=== PATIENT | female | born 1990 | race African-American/Black ===

== ENCOUNTER 2016-07-19 22:42 | Emergency (ER) | payer MEDICAID ==
[~2016-07-19] VITALS: Ht 152.4 cm; Wt 44.0 kg
[2016-07-20 02:06] LABS: *BILIRUBIN,URIN NEGATIVE (NEGATIVE); *BLOOD, URINE 1+ (NEGATIVE); *CLARITY,URINE CLEAR (CLEAR); *COLOR,URINE YELLOW (YELLOW); *KETONES,URINE NEGATIVE (NEGATIVE); *PROTEIN,URINE NEGATIVE (NEGATIVE); *UROBILINOGEN,URINE 0.2 E.U./dl (NORMAL); LEUKOCYTE ESTERASE ,URINE NEGATIVE (NEGATIVE); NITRITE, URINE NEGATIVE (NEGATIVE); UGLUCOSE NEGATIVE (NEGATIVE)
[2016-07-20 02:21] LABS: RBC,URINE 0-3 /HPF (0-3)
[2016-07-20 02:22] LABS: *URINE HCG, QUAL POSITIVE (NEGATIVE); BACTERIA,URINE FEW /HPF (NONE SEEN); SQUAMOUS EPITHELIAL CELL,UR MANY /HPF (NONE SEEN)
[2016-07-20 02:25] LABS: BASOPHILS % (AUTO) 0.2 % (0.0-2.0); EOSINOPHILS # (AUTO) 0.3 K/uL (0.0-0.7); EOSINOPHILS % (AUTO) 3.6 % (0.0-7.0); HEMOGLOBIN 11.1 G/DL (12.0-16.0); LYMPHOCYTES # (AUTO) 2.4 K/UL (0.8-4.8); MEAN CORPUSCULAR HEMOGLOBIN 27.1 UUG (27.0-31.0); MEAN CORPUSCULAR HGB CONC 34 g/dL (32.0-37.0); MEAN CORPUSCULAR VOLUME 80.9 FL (81.0-99.0); MONOCYTES # (AUTO) 0.8 K/UL (0.1-1.30); MONOCYTES % (AUTO) 8.6 % (0.0-11.0); NEUTROPHILS # (AUTO) 5.5 K/UL (1.8-8.9); NEUTROPHILS % (AUTO) 60.6 % (38.5-71.5); PLATELET COUNT (AUTO) 235 K/UL (150-450); RED BLOOD CELL COUNT(AUTO) 4.08 MIL/UL (4.2-5.4); RED CELL DISTRIBUTION WIDTH 12.5 % (11.5-14.5)
--- NOTE | 2016-07-20 02:49 | NUR ---
Patient discharged to home in stable conditon. Written and verbal after care instructions given. Patient verbalizes understanding of instructions.
== END 2016-07-20 02:51 | disposition home or self-care (01) ==
LOC: ER 22:44
DX: O20.0 Threatened abortion (principal); Z3A.01 Less than 8 weeks gestation of pregnancy; F10.20 Alcohol dependence, uncomplicated
CPT/HCPCS: 36415; 76856; 84703; 85025; 86850; 86900; 86901; A4663

== ENCOUNTER 2017-03-27 14:02 | Emergency (ER) | payer MEDICAID ==
[~2017-03-27] VITALS: Ht 152.4 cm; Wt 52.2 kg
[2017-03-27 14:48] LABS: EOSINOPHILS # (AUTO) 0.2 K/uL (0.0-0.7); HEMATOCRIT 33.9 % (31.2-41.9); HEMOGLOBIN 10.9 g/dL (10.9-14.3); MEAN CORPUSCULAR HGB CONC 32 g/dL (32.3-35.6); MONOCYTES # (AUTO) 0.4 K/uL (2.0-10.0); NEUTROPHILS # (AUTO) 4.4 K/uL (1.8-8.9)
[2017-03-27 14:51] LABS: CREATININE 0.7 mg/dL (0.6-1.3); POTASSIUM 3.4 mmol/L (3.5-5.1)
[2017-03-27 14:52] LABS: BASOPHILS % (AUTO) 0.4 % (0.0-2.0); EOSINOPHILS % (AUTO) 2.9 % (0.0-7.0); LYMPHOCYTES # (AUTO) 1.7 K/uL (20.0-40.0); LYMPHOCYTES % (AUTO) 24.7 % (20.5-51.5); MEAN CORPUSCULAR HEMOGLOBIN 25.1 uug (24.7-32.8); MEAN CORPUSCULAR VOLUME 78.1 fL (75.5-95.3); MONOCYTES % (AUTO) 6.5 % (0.0-11.0); NEUTROPHILS % (AUTO) 65.5 % (38.5-71.5); PLATELET COUNT (AUTO) 284 K/uL (179-408); RED BLOOD CELL COUNT(AUTO) 4.34 MIL/uL (3.63-4.92); WHITE BLOOD COUNT (AUTO) 6.8 K/uL (3.8-11.8)
[2017-03-27] MEDS ORDERED: CIPROFLOXACIN HCL 250 MG TABLET PO ONE (15:00)
[2017-03-27] MEDS ORDERED: METRONIDAZOLE 500 MG TABLET PO ONE (15:00)
[2017-03-27] MEDS ORDERED: CIPROFLOXACIN HCL 250 MG TABLET ONE (15:34)
[2017-03-27] MEDS ORDERED: METRONIDAZOLE 500 MG TABLET ONE (15:34)
--- NOTE | 2017-03-27 15:50 | NUR ---
Spoke with Severino (u/s) who stated he is on his way.
[2017-03-27 16:26] LABS: *BILIRUBIN,URIN NEGATIVE (NEGATIVE); *BLOOD, URINE Trace-intact (NEGATIVE); *COLOR,URINE YELLOW (YELLOW); *KETONES,URINE 2+ (NEGATIVE); *PROTEIN,URINE NEGATIVE (NEGATIVE); *UROBILINOGEN,URINE 0.2 E.U./dl (NORMAL); LEUKOCYTE ESTERASE ,URINE NEGATIVE (NEGATIVE); NITRITE, URINE NEGATIVE (NEGATIVE); UGLUCOSE NEGATIVE (NEGATIVE)
[2017-03-27 16:27] LABS: *CLARITY,URINE SLIGHTLY HAZY (CLEAR)
[2017-03-27 16:33] LABS: BACTERIA,URINE FEW /HPF (NONE SEEN); MUCUS,URINE MANY /LPF (0-FEW); RBC,URINE 0-3 /HPF (0-3); SQUAMOUS EPITHELIAL CELL,UR MODERATE /HPF (NONE SEEN)
--- NOTE | 2017-03-27 16:53 | NUR ---
Patient discharged to home in stable conditon. Written and verbal after care instructions given. Patient verbalizes understanding of instructions.
== END 2017-03-27 16:55 | disposition home or self-care (01) ==
LOC: ER 14:02
DX: N71.9 Inflammatory disease of uterus, unspecified (principal); Z98.890 Other specified postprocedural states
CPT/HCPCS: 36415; 76856; 85025; A4663

== ENCOUNTER 2017-10-18 10:48 | Emergency (ER) | payer MEDICAID ==
[~2017-10-18] VITALS: Ht 152.4 cm; Wt 47.6 kg
[2017-10-18] MEDS ORDERED: LEXAPRO (10:56)
[2017-10-18] MEDS ORDERED: TRAZODONE (10:56)
--- NOTE | 2017-10-18 11:12 | NUR ---
Directed to bed after triage. Encouraged pt to undress, change to gown, belongings secured. Seen and eval by ERMD, orders made. Urine sent to lab.Called chemical waste management technician for blood draw, awaiting
[2017-10-18 11:24] LABS: BASOPHILS % (AUTO) 0.2 % (0.0-2.0); EOSINOPHILS # (AUTO) 0.2 K/uL (0.0-0.7); EOSINOPHILS % (AUTO) 3.1 % (0.0-7.0); HEMATOCRIT 38.5 % (31.2-41.9); HEMOGLOBIN 12.4 g/dL (10.9-14.3); LYMPHOCYTES # (AUTO) 1.4 K/uL (20.0-40.0); LYMPHOCYTES % (AUTO) 18.5 % (20.5-51.5); MEAN CORPUSCULAR HEMOGLOBIN 25.6 uug (24.7-32.8); MEAN CORPUSCULAR HGB CONC 32 g/dL (32.3-35.6); MEAN CORPUSCULAR VOLUME 79.6 fL (75.5-95.3); MONOCYTES # (AUTO) 0.8 K/uL (2.0-10.0); MONOCYTES % (AUTO) 11.5 % (0.0-11.0); NEUTROPHILS # (AUTO) 4.9 K/uL (1.8-8.9); NEUTROPHILS % (AUTO) 66.7 % (38.5-71.5); PLATELET COUNT (AUTO) 191 K/uL (179-408); RED BLOOD CELL COUNT(AUTO) 4.84 MIL/uL (3.63-4.92); WHITE BLOOD COUNT (AUTO) 7.4 K/uL (3.8-11.8)
[2017-10-18 11:25] LABS: *BILIRUBIN,URIN NEGATIVE (NEGATIVE); *BLOOD, URINE 3+ (NEGATIVE); *CLARITY,URINE CLEAR (CLEAR); *COLOR,URINE YELLOW (YELLOW); *KETONES,URINE NEGATIVE (NEGATIVE); *PROTEIN,URINE NEGATIVE (NEGATIVE); *UROBILINOGEN,URINE 0.2 E.U./dl (NORMAL); LEUKOCYTE ESTERASE ,URINE 1+ (NEGATIVE); NITRITE, URINE NEGATIVE (NEGATIVE); PH,URINE 5.5 (5.0-8.0); UGLUCOSE NEGATIVE (NEGATIVE)
[2017-10-18 11:28] LABS: CARBON DIOXIDE 26 mmol/L (21-32); CHLORIDE 104 mmol/L (98-107); CREATININE 0.7 mg/dL (0.6-1.3); GLUCOSE 89 mg/dL (74-106); POTASSIUM 3.7 mmol/L (3.5-5.1); UREA NITROGEN, BLOOD 11 mg/dL (7-18)
[2017-10-18 11:34] LABS: ALANINE AMINOTRANSFERASE 34 U/L (14-59); ALKALINE PHOSPHATASE 98 U/L (50-136); ASPARTATE AMINOTRANSFERASE 48 U/L (15-37); BILIRUBIN,DIRECT 0.1 mg/dL (0.0-0.2); BILIRUBIN,TOTAL 0.3 mg/dL (0.2-1.0); TOTAL PROTEIN, SERUM 8.2 g/dL (6.4-8.2)
[2017-10-18 11:35] LABS: *URINE HCG, QUAL NEGATIVE (NEGATIVE)
[2017-10-18 11:38] LABS: ACETAMINOPHEN < 2.0 ug/mL (10-30)
[2017-10-18 11:42] LABS: BACTERIA,URINE FEW /HPF (NONE SEEN); RBC,URINE 20-50 /HPF (0-3)
[2017-10-18 11:43] LABS: MUCUS,URINE FEW /LPF (0-FEW); SQUAMOUS EPITHELIAL CELL,UR FEW /HPF (NONE SEEN)
[2017-10-18 11:44] LABS: *AMPHETAMINE, URINE NEGATIVE (NEGATIVE); *BARBITURATE, URINE NEGATIVE (NEGATIVE); *CANNABINOID, URINE NEGATIVE (NEGATIVE); *COCCAINE, URINE NEGATIVE (NEGATIVE); *OPIATE, URINE NEGATIVE (NEGATIVE); *PHENCYCLIDINE SCREEN,URINE NEGATIVE (NEGATIVE)
[2017-10-18 11:46] LABS: ETHANOL < 3 MG/DL (0-0)
--- NOTE | 2017-10-18 12:05 | NUR ---
[place] advised and ordered for Crisis rickshaw driver, Jessika called at [phone], "stated she will come and see patient", awaiting.
--- NOTE | 2017-10-18 12:07 | NUR ---
Blood was drawn by category development analyst, pelvic exam was done by ERMWes, vaginal swab was sent to lab.
--- NOTE | 2017-10-18 12:59 | NUR ---
Jessika arrived for psych eval.
--- NOTE | 2017-10-18 13:46 | NUR ---
Was seen and eval by crisis aids counselor, not on hold. ERMD aware and may go home.Awaiting family member to pick her up.
--- NOTE | 2017-10-18 13:57 | NUR ---
ACI and meds presc given and explained, showed sign of undertanding. Discharged in stable condition with steady gait.
== END 2017-10-18 14:16 | disposition home or self-care (01) ==
LOC: ER 10:48
DX: R45.851 Suicidal ideations (principal); N39.0 Urinary tract infection, site not specified
CPT/HCPCS: 36415; 80307; 84703; 85025; 87081; 87086; 87110; 87210; A4663; G0480; G0480-TC

== ENCOUNTER 2018-04-04 23:50 | Emergency (ER) | payer MEDICAID ==
[~2018-04-04] VITALS: Ht 152.4 cm; Wt 52.2 kg
[~2018-04-04 23:50] MED LIST: LEXAPRO; TRAZODONE
--- NOTE | 2018-04-05 00:07 | NUR ---
Pt ambulates to ER with c/o suicidal ideation x 2 days. Pt states her plan is to jump in front of a bus. Has hx of depression. Tamia HI. Denies auditory/visual hallucinations. Suicide precautions implemented. All pt belongings placed out of room to nursing station. Sitter (security) at bedside.
[2018-04-05 00:29] LABS: BASOPHILS % (AUTO) 0.3 % (0.0-2.0); EOSINOPHILS # (AUTO) 0.1 K/uL (0.0-0.7); HEMATOCRIT 37.7 % (31.2-41.9); LYMPHOCYTES # (AUTO) 2.4 K/uL (20.0-40.0); LYMPHOCYTES % (AUTO) 31.7 % (20.5-51.5); MEAN CORPUSCULAR HEMOGLOBIN 25.8 uug (24.7-32.8); MEAN CORPUSCULAR HGB CONC 32 g/dL (32.3-35.6); MEAN CORPUSCULAR VOLUME 81.2 fL (75.5-95.3); MONOCYTES # (AUTO) 0.6 K/uL (2.0-10.0); MONOCYTES % (AUTO) 7.7 % (0.0-11.0); NEUTROPHILS # (AUTO) 4.3 K/uL (1.8-8.9); NEUTROPHILS % (AUTO) 58.3 % (38.5-71.5); PLATELET COUNT (AUTO) 262 K/uL (179-408); RED BLOOD CELL COUNT(AUTO) 4.64 MIL/uL (3.63-4.92); WHITE BLOOD COUNT (AUTO) 7.4 K/uL (3.8-11.8)
[2018-04-05 00:34] LABS: *BILIRUBIN,URIN NEGATIVE (NEGATIVE); *BLOOD, URINE Trace-intact (NEGATIVE); *CLARITY,URINE SLIGHTLY CLOUDY (CLEAR); *COLOR,URINE YELLOW (YELLOW); *KETONES,URINE 1+ (NEGATIVE); *PROTEIN,URINE TRACE (NEGATIVE); LEUKOCYTE ESTERASE ,URINE NEGATIVE (NEGATIVE); NITRITE, URINE NEGATIVE (NEGATIVE); UGLUCOSE NEGATIVE (NEGATIVE)
[2018-04-05 00:34] LABS: CARBON DIOXIDE 28 mmol/L (21-32); CHLORIDE 101 mmol/L (98-107); CREATININE 0.7 mg/dL (0.6-1.3); GLUCOSE 96 mg/dL (74-106); POTASSIUM 3.7 mmol/L (3.5-5.1); UREA NITROGEN, BLOOD 14 mg/dL (7-18)
[2018-04-05 00:40] LABS: ALANINE AMINOTRANSFERASE 28 U/L (14-59); ALKALINE PHOSPHATASE 84 U/L (50-136); ASPARTATE AMINOTRANSFERASE 19 U/L (15-37); BILIRUBIN,DIRECT 0.1 mg/dL (0.0-0.2); BILIRUBIN,TOTAL 0.3 mg/dL (0.2-1.0); TOTAL PROTEIN, SERUM 8.6 g/dL (6.4-8.2)
[2018-04-05 00:57] LABS: BACTERIA,URINE NONE SEEN /HPF (NONE SEEN); MUCUS,URINE MANY /LPF (0-FEW); SQUAMOUS EPITHELIAL CELL,UR MODERATE /HPF (NONE SEEN); WBC,URINE 0-3 /HPF (0-3)
[2018-04-05 00:58] LABS: URINE AMORPHOUS PHOSPHATES MODERATE /HPF
[2018-04-05 01:00] LABS: *AMPHETAMINE, URINE NEGATIVE (NEGATIVE); *BARBITURATE, URINE NEGATIVE (NEGATIVE); *CANNABINOID, URINE NEGATIVE (NEGATIVE); *COCCAINE, URINE NEGATIVE (NEGATIVE); *OPIATE, URINE NEGATIVE (NEGATIVE); *PHENCYCLIDINE SCREEN,URINE NEGATIVE (NEGATIVE)
[2018-04-05 01:02] LABS: ETHANOL < 3 MG/DL (0-0)
--- NOTE | 2018-04-05 01:50 | NUR ---
Pt has been medically cleared by Dr. Mello.
--- NOTE | 2018-04-05 01:53 | NUR ---
Marsha Abdi from PET team for psych evaluation.
[2018-04-05] MEDS ORDERED: MUPIROCIN 2% OINT 22 GM TUBE TP ONE (02:00)
[2018-04-05] MEDS ORDERED: CLINDAMYCIN HCL 150 MG CAPSULE PO ONE (02:00)
[2018-04-05] MEDS ORDERED: MUPIROCIN 2% OINT 22 GM TUBE ONE (02:21)
[2018-04-05] MEDS ORDERED: CLINDAMYCIN HCL 300 MG CAPSULE ONE (02:21)
--- NOTE | 2018-04-05 02:25 | NUR ---
[place]in[place] from PET team at bedside for psych evaluation.
--- NOTE | 2018-04-05 03:18 | NUR ---
Summary report has been faxed over to [facility] (intake). Pt is requesting voluntary admission to [facility]. Pending bed availability. Pt is resting in bed with eyes closed. Respirations even + unlabored. Sitter (security at beside).
--- NOTE | 2018-04-05 03:35 | NUR ---
Spoke with [facility] from intake. Expected bed availability at [facility] at 0900 today.
--- NOTE | 2018-04-05 04:27 | NUR ---
Pt is resting comfortably in bed with eyes closed. Respirations even + unlabored. Will ctm.
--- NOTE | 2018-04-05 05:10 | NUR ---
Pt is resting comfortably in bed with eyes closed. Respirations even + unlabored.
--- NOTE | 2018-04-05 06:52 | NUR ---
Report given to day shift nurse.
--- NOTE | 2018-04-05 07:47 | NUR ---
pt awake now, hospital bf tray at bedside.
--- NOTE | 2018-04-05 09:09 | NUR ---
called [facility] on [address] and talked to amara. room wll be ready at 1030, report number [phone].
--- NOTE | 2018-04-05 10:26 | NUR ---
pt mother called back and requested the pt to call her back. pt informed.
--- NOTE | 2018-04-05 10:47 | NUR ---
gave report to [facility]. called [facility] for transfer, trip # [id number],eta 20 minutes
--- NOTE | 2018-04-05 11:26 | NUR ---
ambulanz at bedside to transfer to [facility]. pt deneis any pain, nausea or any other distress.
== END 2018-04-05 11:34 | disposition short-term general hospital (02) ==
LOC: ER 23:52
DX: F32.9 Major depressive disorder, single episode, unspecified (principal); R45.851 Suicidal ideations; N61.0 Mastitis without abscess; Z79.899 Other long term (current) drug therapy
CPT/HCPCS: 36415; 80048; 80076; 80307; 81001; 84702; 85025; 99285; G0480; A4663

== ENCOUNTER 2019-02-12 21:47 | Emergency (ER) | payer MEDICAID ==
[~2019-02-12] VITALS: Ht 152.4 cm; Wt 49.9 kg
[2019-02-13 01:41] VITALS: BP 102/65
== END 2019-02-12 23:45 | disposition home or self-care (01) ==
LOC: ER 21:50
DX: J01.90 Acute sinusitis, unspecified (principal); J40 Bronchitis, not specified as acute or chronic; J02.9 Acute pharyngitis, unspecified; F32.9 Major depressive disorder, single episode, unspecified; Z79.899 Other long term (current) drug therapy
CPT/HCPCS: 36415; 86403; 87070; 87400; A4663

== ENCOUNTER 2020-01-10 16:00 | Emergency (ER) | payer MEDICAID ==
[~2020-01-10] VITALS: Ht 152.4 cm; Wt 54.0 kg
--- NOTE | 2020-01-10 16:16 | NUR ---
Patient discharged to home in stable condition. Written and verbal after care instructions given. Patient verbalizes understanding of instructions. Stressed follow up or return to ER for worsening s/s.
== END 2020-01-10 16:47 | disposition home or self-care (01) ==
LOC: ER 16:02
DX: B37.3 Candidiasis of vulva and vagina (principal); W26.8XXA Contact with other sharp object(s), not elsewhere classified, initial encounter; Y92.89 Other specified places as the place of occurrence of the external cause; S31.4 Open wound of vagina and vulva; L08.9 Local infection of the skin and subcutaneous tissue, unspecified; F32.9 Major depressive disorder, single episode, unspecified; Z79.899 Other long term (current) drug therapy
CPT/HCPCS: A4663

== ENCOUNTER 2020-04-09 17:00 | Emergency (ER) | payer MEDICAID ==
[~2020-04-09] VITALS: Ht 152.4 cm; Wt 50.8 kg
[2020-04-09] MEDS ORDERED: CEPH500T PO (17:12)
[2020-04-09] MEDS ORDERED: DESO15CR11 TP (17:12)
[2020-04-09 17:25] VITALS: BP 109/67
== END 2020-04-09 17:30 | disposition home or self-care (01) ==
LOC: ER 17:01
DX: L30.9 Dermatitis, unspecified (principal)
CPT/HCPCS: A4663

== ENCOUNTER 2020-04-16 14:30 | Emergency (ER) | payer MEDICAID ==
[~2020-04-16] VITALS: Ht 152.4 cm; Wt 50.8 kg
[~2020-04-16 14:30] MED LIST changes: +CEPH500T PO; +DESO15CR11 TP
== END 2020-04-16 15:01 | disposition home or self-care (01) ==
LOC: ER 14:31
DX: L01.00 Impetigo, unspecified (principal)
CPT/HCPCS: A4663